=== PATIENT | male | born 1970 | race Caucasian/White ===

== ENCOUNTER 2020-05-27 21:06 | Emergency (ER) | payer BC, OTHER ==
--- NOTE | 2020-05-27 21:12 | EDM.PDOC ---
ED HPI GENERAL MEDICAL PROBLEM - General Stated Complaint: FALL LACERATION VIA [facility] Time Seen by Provider: 05/27/20 21:06 Source of Information: Reports: EMS History Limitations: Reports: Altered Mental Status - History of Present Illness INITIAL COMMENTS - FREE TEXT/NARRATIVE: 50-year-old has been drinking today and fell down some stairs injuring his head. He was unconscious for several minutes. Some neighbors that he was drinking with called the ambulance, on arrival he was belligerent and uncooperative and needed a dose of ketamine in route to quiet him down. He has an obvious injury to his right parietal scalp and a c-collar. Vitals are stable. 250 mg of ketamine IM were given in route. An IV is established. He is starting to wake up and become mildly combative again, the only obvious injury is a stellate laceration to the right scalp. GCS is 11 but affected by the ketamine. Onset: Sudden (Fell down the stairs within the last hour) denies pain Pain Score (Numeric/FACES): 0 head Pain Score (Numeric/FACES): 2 - Related Data Allergies Allergy/AdvReac Type Severity Reaction Status Date / Time No Known Allergies Allergy Verified 05/27/20 22:47 Home Meds: Home Meds Aspirin [Scar Chewable Aspirin] 81 mg PO DAILY 05/28/20 [History] Cetirizine [ZyrTEC] 10 mg PO DAILY 05/28/20 [History] Escitalopram [Lexapro] 20 mg PO DAILY 05/28/20 [History] Fluticasone Propionate [Flonase Allergy Relief] 1 - 2 sprays NASBOTH ASDIRECTED 05/28/20 [History] Gabapentin [Neurontin] 300 mg PO ASDIRECTED 05/28/20 [History] Gabapentin [Neurontin] 400 mg PO TID 05/28/20 [History] lisinopriL [Lisinopril] 10 mg PO DAILY 05/28/20 [History] Review of Systems - Review of Systems Review Of Systems: See Below (Unable to obtain because of his current mental status and affect of ketamine) ED EXAM, GENERAL - Physical Exam Exam: See Below Exam Limited By: Physical Impairment General Appearance: Alert, No Apparent Distress Eye Exam: Bilateral Eye: EOMI, PERRL (Pupils are small but equal, no disconjugate gaze) Head: Other (Fairly large area of ecchymosis on the right parietal scalp with a stellate laceration measuring a total of 10 cm. There is also a curved superficial abrasion on the right cheek but not significant depth needing repair) Neck: Other (Cervical collar is currently on but he seems to be moving his neck with strength without any problem. After the CT scan was negative and cervical collar was removed, neck was supple without pain) Respiratory/Chest: No Respiratory Distress, Lungs Clear Cardiovascular: Regular Rate, Rhythm GI/Abdominal: Soft, Non-Tender Extremities: Other (No obvious evidence of injury to the extremities. Patient has a posterior splint behind the right foot from "foot drop".) Neurological: Confused, Disoriented, Other (Moderately combative) Course - Vital Signs Last Recorded V/S: Last Vital Signs Temp 96.7 F L 05/28/20 03:08 Pulse 90 05/28/20 06:24 Resp 14 05/28/20 06:24 BP 118/73 05/28/20 06:24 Pulse Ox 97 05/28/20 06:24 - Orders/Labs/Meds Labs: Laboratory Tests 05/27/20 05/27/20 05/27/20 Range/Units 21:32 21:32 21:32 WBC 15.0 H (4.5-11.0) K/uL RBC 4.93 (4.30-5.90) M/uL Hgb 15.0 (12.0-15.0) g/dL Hct 44.4 (40.0-54.0) % MCV 90 (80-98) fL MCH 30 (27-31) pg MCHC 34 (32-36) % Plt Count 240 (150-400) K/uL Neut % (Auto) 77 H (36-66) % Lymph % (Auto) 14 L (24-44) % [place] % (Auto) 7 H (2-6) % Eos % (Auto) 2 (2-4) % Baso % (Auto) 1 (0-1) % Sodium 143 (140-148) mmol/L Potassium 3.8 (3.6-5.2) mmol/L Chloride 105 (100-108) mmol/L Carbon Dioxide 25 (21-32) mmol/L Anion Gap 13.1 (5.0-14.0) mmol/L BUN 15 (7-18) mg/dL Creatinine 1.1 (0.8-1.3) mg/dL Est Cr Clr Drug Dosing TNP Estimated GFR (MDRD) > 60 (>60) Glucose 100 (74-106) mg/dL Calcium 8.3 L (8.5-10.1) mg/dL Ethyl Alcohol 321 mg/dL Meds: Medications Discontinued Medications Generic Name Dose Route Start Last Admin Trade Name Randolph PRN Reason Stop Dose Admin Bacitracin 1 dose 05/27/20 22:07 05/27/20 22:15 Bacitracin Oint 1 Gm TOP 05/27/20 22:08 1 dose ONETIME ONE Administration - Re-Assessments/Exams Free Text/Narrative Re-Assessment/Exam: 05/27/20 21:[address] was obtained which was negative, C-spine also was ordered but was not seen by radiology and patient was brought back without films. Lidocaine with epinephrine was infiltrated into the laceration area of the scalp and the patient was sent back for a CT of the neck. 05/27/20 22:40 Head and neck CTs were negative, patient regained orientation after the ketamine wore off and became actually fairly cooperative. Other than the head injury he had no other complaints. EtOH was 0.321. White count 15.2, all other labs normal. 05/27/20 22:43 After the stellate laceration was cleared from the hair, 12 brian were placed to approximate the edges of the laceration. Topical bacitracin and a wraparound scalp dressing was applied. Brian can be removed in 8 days. 05/28/20 03:59 Patient continued to rest quietly, he does have sleep apnea and became mildly hypoxic while sleeping so oxygen was supplied. He is waiting for a ride home. Departure - Departure Time of Disposition: 08:18 Disposition: Home, Self-Care 01 Clinical Impression: Alcohol intoxication Qualifiers: Complication of substance-induced condition: with unspecified complication Qualified Code(s): F10.929 - Alcohol use, unspecified with intoxication, unspecified Laceration of scalp Qualifiers: Encounter type: initial encounter Qualified Code(s): S01.01XA - Laceration without foreign body of scalp, initial encounter Concussion with loss of consciousness <= 30 min Qualifiers: Encounter type: initial encounter Qualified Code(s): S06.0X1A - Concussion with loss of consciousness of 30 minutes or less, initial encounter - Discharge Information Instructions: Concussion, Adult, [id number], Head Injury, Adult, [id number] Referrals: PCP,None [Primary Care Provider] - Forms: ED Department Discharge Care Plan Goals: Keep wound clean while healing, and brian can be removed in 8 days. Tylenol or ibuprofen will be helpful for any headaches, avoid alcohol until any concussion symptoms clear. Recheck with your regular doctor in the next 1 to 2 weeks if not improving satisfactorily or having persistent headaches, dizziness, light or sound sensitivity or other concerns.
--- NOTE | 2020-05-27 21:47 | CRLCT ---
HISTORY: Fall. Head injury. TECHNIQUE: CT brain without contrast. COMPARISON: None. FINDINGS: No acute intracranial hemorrhage. No extra-axial collection. No mass effect or midline shift. No ventricular dilation. Cisterns are patent. Mills-white differentiation is maintained. Calvarium is intact. Mucosal thickening in the frontal, maxillary, and sphenoid sinuses and in the ethmoid air cells. Localized infiltration of right parietal scalp subcutaneous fat. IMPRESSION: 1. No acute intracranial abnormality. 2. Right scalp contusion. Please note that all CT scans at this facility use dose modulation, iterative reconstruction, and/or weight-based dosing when appropriate to reduce radiation dose to as low as reasonably achievable. Dictated by Varun Colbert MD @ May 27 2020 9:38PM Signed by Dr. Varun Colbert @ May 27 2020 9:45PM
--- NOTE | 2020-05-27 22:06 | CRLCT ---
INDICATION: Fall, cervical spine injury. alcohol intoxication TECHNIQUE: CT cervical spine without i.v. contrast. Coronal and sagittal reformats were obtained. COMPARISON: None FINDINGS: Severe degradation of image quality noted due to patient motion artifacts. Alignment: Unremarkable. Bone: No acute fractures or aggressive bone lesions are identified. Disc: Moderate degenerative disc disease is noted at C5-6. The facet joints are unremarkable. Soft tissue: The prevertebral soft tissues are unremarkable in appearance. The visualized lung apices and mediastinum are unremarkable. IMPRESSION: 1. No acute osseous injuries are identified. 2. Severe degradation of image quality noted due to patient motion artifacts. If there is a high clinical index of suspicion for spinal injury, repeat examination is recommended when the patient is more alert and oriented. Please note that all CT scans at this facility use dose modulation, iterative reconstruction, and/or weight-based dosing when appropriate to reduce radiation dose to as low as reasonably achievable. Dictated by: Kale Diaz MD @ 05/27/2020 22:04:31 (Electronically Signed)
[2020-05-27] MEDS ORDERED: Bacitracin Oint 1 GM U/D Packet TOP ONE (22:07)
== END 2020-05-28 08:57 | disposition home or self-care (01) ==
LOC: JP.ED 21:06
DX: S06.0X1A Concussion with loss of consciousness of 30 minutes or less, initial encounter (principal); S01.01XA Laceration without foreign body of scalp, initial encounter; S00.81XA Abrasion of other part of head, initial encounter; F10.129 Alcohol abuse with intoxication, unspecified; Y90.8 Blood alcohol level of 240 mg/100 ml or more; W10.9XXA Fall (on) (from) unspecified stairs and steps, initial encounter
CPT/HCPCS: 12004; 36415; 70450; 72125; 80048; 80307; 85025; 99283; 99285-25